=== PATIENT | male | born 1990 | race Caucasian/White ===

== ENCOUNTER 2021-02-06 17:19 | Emergency (ER) | payer OTHER ==
[2021-02-06 17:33] VITALS: BP 113/79; PULSE 65; TEMP 98; BMI 30.1
== END 2021-02-06 21:40 | disposition home or self-care (01) ==
LOC: FER 17:19
DX: G44.82 Headache associated with sexual activity (principal)
CPT/HCPCS: 70450-TC; 93005; 99284-25